=== PATIENT | male | born 1990 | race Caucasian/White ===

== ENCOUNTER 2016-09-15 22:00 | Emergency (ER) | payer SELFPAY ==
[2016-09-15 22:09] VITALS: BP 133/78; PULSE 82; RESP 18; TEMP 97.2
[2016-09-15] MEDS ORDERED: PROPARACAINE 0.5% OPHTH DROPS 15 ML BTL RIGHT EYE STA (22:13)
[2016-09-15] MEDS ORDERED: TOBRAMYCIN 0.3% OPHTH DROPS 5 ML BTL LEFT EYE STA (22:29)
[2016-09-15] MEDS ORDERED: methylPREDNISolone SOD SUCCI 125 MG/2 ML VIAL IM ONE (22:30)
--- NOTE | 2016-09-15 22:39 | ED ---
Allergic Reaction HPI - General Chief complaint: Allergic Reaction Stated complaint: eye swollen, SOB Time Seen by Provider: 09/15/16 22:12 Source: patient, RN notes reviewed Mode of arrival: ambulatory Limitations: no limitations - History of Present Illness Initial Comments: Patient is a 26 year old male with 1 day of swollen left eye. Patient reports he noticed it to swell earlier today, but took a nap and woke up with his entire eye swollen nearly shut. Patient states that he has also noticed a rash on his hands, neck, and chest earlier today. Patient reports it is pruritic and spreading, he states he has blisters on his fingers. Patient states that he has had no new medication. Patient reports to being outside cleaning brush and [place] 2 days ago. He reports he could have had contact with poison oak or evelin. Patient denies any tongue swelling, states mildly short of breath. Denies abdominal pain, chest pain, nausea, vomiting, fever, chills. - Related Data Home Medications Medication Instructions Recorded Confirmed Ibuprofen [Advil] 200 mg PO Q6HR PRN 12/31/15 12/31/15 Multivitamin [Men's Multi-Vitamin] 1 tab PO DAILY 12/31/15 12/31/15 Previous Rx's Medication Instructions Recorded traMADol HCL [Ultram] 100 mg PO Q4HR PRN #20 tab 12/31/15 predniSONE 10 mg PO DIRECTED #43 tab 09/15/16 Allergies Allergy/AdvReac Type Severity Reaction Status Date / Time No Known Allergies Allergy Verified 09/15/16 22:09 Review of Systems ROS Statement: Those systems with pertinent positive or pertinent negative responses have been documented in the HPI. ROS Other: All systems not noted in ROS Statement are negative. Past Medical History Past Medical History: No Reported History History of Any Multi-Drug Resistant Organisms: None Reported Additional Past Surgical History / Comment(s): lymph node removed from behind left ear Past Anesthesia/Blood Transfusion Reactions: No Reported Reaction Past Psychological History: No Psychological Hx Reported Additional Psychological History / Comment(s): Pt resides with his fiancee and 4 yr old son. He is an control electrician. He is independent. Smoking Status: Never smoker Past Alcohol Use History: None Reported Additional Past Alcohol Use History / Comment(s): Pt states he smokes about 1 pack of cigarettes a month. He does not smoke daily. He drinks less than 14 drinks per week. Past Drug Use History: Marijuana Additional Drug Use History / Comment(s): Pt states he occasionally smokes marijuana but not on a regular basis. - Past Family History Father Family Medical History: Diabetes Mellitus Additional Family Medical History / Comment(s): Father recently had a cholecystectomy. Mother Family Medical History: No Reported History Additional Family Medical History / Comment(s): Mother is healthy. General Exam - General Exam Comments Initial Comments: Pleasant 26 year old male no distress. Limitations: no limitations General appearance: alert, in no apparent distress Head exam: Present: atraumatic, normocephalic, normal inspection Eye exam: Present: PERRL, EOMI. Absent: normal appearance (significantly swollen left periorbital region. No evdence of crusting, drainage from the eye. Few blister like lesions over left eyebrow and upper eyelid. ), scleral icterus , conjunctival injection, periorbital swelling ENT exam: Present: normal exam, mucous membranes moist, other (scattered erythematous .2cm bister over neck and side of face. ) Neck exam: Present: normal inspection. Absent: tenderness, meningismus, lymphadenopathy Respiratory exam: Present: normal lung sounds bilaterally. Absent: respiratory distress, wheezes, rales, rhonchi, stridor Cardiovascular Exam: Present: regular rate, normal rhythm, normal heart sounds. Absent: systolic murmur, diastolic murmur, rubs, gallop, clicks GI/Abdominal exam: Present: soft, normal bowel sounds. Absent: distended, tenderness, guarding, rebound, rigid Extremities exam: Present: normal inspection, full ROM, normal capillary refill , other (linear blisters over fingers into wrist. ). Absent: tenderness, pedal edema, joint swelling, calf tenderness Back exam: Present: normal inspection Neurological exam: Present: alert, oriented X3, CN II-XII intact Psychiatric exam: Present: normal affect, normal mood Skin exam: Present: warm, dry, intact, normal color, rash (evidence of blistering erythematous lesions on hands, trunk, neck and back. Rash cosistent with contact dermatitis from poison oak or evelin. ) Course Vital Signs 09/15/16 22:06 Temperature 97.2 F L Pulse Rate 82 Respiratory 18 Rate Blood Pressure 133/78 O2 Sat by Pulse 100 Oximetry Medical Decision Making - Medical Decision Making Patient is a 26 year old male with 1 day of swollen left eye. Patient reports he noticed it to swell earlier today, but took a nap and woke up with his entire eye swollen nearly shut. Patient states that he has also noticed a rash on his hands, neck, and chest earlier today. Patient reports it is pruritic and spreading, he states he has blisters on his fingers. Patient states that he has had no new medication. Patient reports to being outside cleaning brush and [place] 2 days ago. Patient rash is consistent with posion oak, and evidence of lesions over upper left eyelids causing the swelling. Patient visual accuity normal, no evidence of respiratory distress or wheezing. No swelling of tongue. Patient given IM solumedrol and advised to continue dosing benadryl every 6 hours, and finishing steroid prescription for 2 weeks. Patient given tobramycin eye drops for left eye to ensure no infections occur and keep eye moistened. Patient case reviewed with Dr. Huitron, and Dr. Huitron examined the patient. Recommended applying OTC caladryl for drying out the lesions and helping with pain. Return parameters discussed. Disposition Clinical Impression: Contact dermatitis due to poison oak, Eye swollen, left Disposition: HOME SELF-CARE Condition: Good Instructions: Contact Dermatitis (ED), Poison Evelin (ED) Additional Instructions: Patient advised to complete steroid taper for the next 2 weeks. Apply the antibiotic eyedrop every 4-6 hours for the next few days until eye swelling diminishes. Apply Caladryl lotion over the areas that are open. Avoid scratching and spreading the oils. Apply cold compresses and ice over the eye. Return to the emergency department if any alarming signs or symptoms occur. Prescriptions: predniSONE 10 mg PO DIRECTED #43 tab Referrals: Jacobo Workman MD [STAFF PHYSICIAN] - 1-2 days Time of Disposition: 22:39
== END 2016-09-15 22:51 | disposition home or self-care (01) ==
LOC: EC 22:00
DX: L25.5 Unspecified contact dermatitis due to plants, except food (principal); H57.8 Other specified disorders of eye and adnexa; F17.210 Nicotine dependence, cigarettes, uncomplicated; Z79.899 Other long term (current) drug therapy
CPT/HCPCS: 99283; 96372; J2930

== ENCOUNTER 2017-01-26 10:12 | Emergency (ER) | payer OTHER ==
[2017-01-26] MEDS ORDERED: SODIUM CHLORIDE 0.9% 1,000 ML IV STA ×2 (10:55)
[2017-01-26 11:28] LABS: Appearance,Urine Clear (Clear); Bilirubin,Urine Negative (Negative); Glucose,Urine (UA) Negative (Negative); Ketones,Urine Negative (Negative); Leukocyte Esterase,Urine Negative (Negative); Mucus,Urine Few /hpf; Nitrite,Urine Negative (Negative); Particle Count 3516; Protein,Urine 1+ (Negative); Specific Gravity,Urine 1.025 (1.001-1.035); UA Billing (MACRO vs. MICRO) MICRO; Urobilinogen,Urine <2.0 mg/dL (<2.0); WBC,Urine 4 /hpf (0-5)
--- NOTE | 2017-01-26 11:30 | XR ---
EXAMINATION TYPE: XR KUB DATE OF EXAM: 01/26/2017 CLINICAL DATA: 26-year-old male with abdominal pain, [facility] COMPARISON: 12/31/2015 FINDINGS: Lung bases are clear. No evidence for free intraperitoneal air. No dilated small bowel or air-fluid levels. Scattered air and stool seen throughout the colon extendi ng distally into the rectum. No significant stool burden. No suspicious calcifications identified. IMPRESSION: No evidence of bowel obstruction or free intraperitoneal air.
[2017-01-26 11:34] LABS: Add Differential Manual Differential
[2017-01-26 11:37] LABS: ALT 51 U/L (21-72); AST 34 U/L (17-59); Alkaline Phosphatase 108 U/L (38-126); Amylase <30 U/L (30-110); Anion Gap 11 mmol/L; Blood Urea Nitrogen 15 mg/dL (9-20); Calcium 9.1 mg/dL (8.4-10.2); Carbon Dioxide 30 mmol/L (22-30); Chloride 101 mmol/L (98-107); Glucose 92 mg/dL (74-99); Non-African American GFR(MDRD) >60 (>60 ml/min/1.73 sqM); Potassium 3.7 mmol/L (3.5-5.1); Sodium 142 mmol/L (137-145); Total Bilirubin 0.5 mg/dL (0.2-1.3); Total Protein 6.8 g/dL (6.3-8.2)
[2017-01-26 11:47] LABS: Manual Review Performed; Nucleated Red Blood Cells 0 /100 WBC (0-0); RBC Morphology Normal; Total Cells Counted 100
[2017-01-26 11:51] LABS: Aty Lym Flag Slight; Basophils % (A) 1 %; CHCM 34.8; Eosinophils # (A) 0.2 k/uL (0-0.7); Eosinophils % (A) 4 %; HCT 39.1 % (39.0-53.0); HDW 2.93; HGB 13.7 gm/dL (13.0-17.5); Luc # (Auto) 0.24; Luc % (Auto) 5; Lymphocytes % (A) 21 %; MCH 29.3 pg (25.0-35.0); MCHC 35.1 g/dL (31.0-37.0); MCV 83.6 fL (80.0-100.0); Mean Platelet Volume 7.7; Monocytes # (A) 0.4 k/uL (0-1.0); Monocytes % (A) 8 %; Neutrophils # (A) 2.8 k/uL (1.3-7.7); Neutrophils % (A) 62 %; RBC 4.68 m/uL (4.30-5.90); RDW 12.9 % (11.5-15.5); WBC 4.6 k/uL (3.8-10.6); WBC (Perox) 4.54
--- NOTE | 2017-01-26 12:10 | ED ---
General Adult HPI - General Chief complaint: Abdominal Pain Stated complaint: body aches/sob Time Seen by Provider: 01/26/17 10:48 Source: patient, RN notes reviewed Mode of arrival: ambulatory Limitations: no limitations - History of Present Illness Initial comments: Patient 26-year-old male who presents emergency room today with a chief complaint of increased body aches over the last 2-3 days. He does admit to a sore throat. Patient does admit that he's felt nauseated at times. Does admit that he's been experiencing some left upper quadrant pain. Patient denies any other complaints or associated symptoms. Patient denies any shortness of breath , chest pain, back pain, vomiting, numbness or tingling, dysuria or hematuria, constipation or diarrhea, headaches or visual changes, or any other complaints. - Related Data Home Medications Medication Instructions Recorded Confirmed Acetaminophen Tab [Tylenol Tab] 500 mg PO Q6HR PRN 01/26/17 01/26/17 Ibuprofen [Motrin] 200 mg PO Q6HR PRN 01/26/17 01/26/17 Allergies Allergy/AdvReac Type Severity Reaction Status Date / Time No Known Allergies Allergy Verified 01/26/17 10:42 Review of Systems ROS Statement: Those systems with pertinent positive or pertinent negative responses have been documented in the HPI. ROS Other: All systems not noted in ROS Statement are negative. Past Medical History Past Medical History: No Reported History History of Any Multi-Drug Resistant Organisms: None Reported Additional Past Surgical History / Comment(s): lymph node removed from behind left ear Past Anesthesia/Blood Transfusion Reactions: No Reported Reaction Past Psychological History: No Psychological Hx Reported Smoking Status: Never smoker Past Alcohol Use History: None Reported Past Drug Use History: Marijuana - Past Family History Father Family Medical History: Diabetes Mellitus Additional Family Medical History / Comment(s): Father recently had a cholecystectomy. Mother Family Medical History: No Reported History Additional Family Medical History / Comment(s): Mother is healthy. General Exam - General Exam Comments Initial Comments: General: The patient is awake and alert, in no distress, and does not appear acutely ill. Eye: Pupils are equal, round and reactive to light, extra-ocular movements are intact. No nystagmus. There is normal conjunctiva bilaterally. No signs of icterus. Ears, nose, mouth and throat: There are moist mucous membranes and no oral lesions. Neck: The neck is supple, there is no tenderness or JVD. Cardiovascular: There is a regular rate and rhythm. No murmur, rub or gallop is appreciated. Respiratory: Lungs are clear to auscultation, respirations are non-labored, breath sounds are equal. No wheezes, stridor, rales, or rhonchi. Gastrointestinal: Soft, non-distended, non-tender abdomen without masses or organomegaly noted. There is no rebound or guarding present. No CVA tenderness. Bowel sounds are unremarkable. Musculoskeletal: Normal ROM, no tenderness. Strength 5/5. Sensation intact. Pulses equal bilaterally 2+. Neurological: A&O x 3. CN II-XII intact, There are no obvious motor or sensory deficits. Coordination appears grossly intact. Speech is normal. Skin: Skin is warm and dry and no rashes or lesions are noted. Psychiatric: Cooperative, appropriate mood & affect, normal judgment. Limitations: no limitations Course Vital Signs 01/26/17 10:28 Temperature 98.2 F Pulse Rate 86 Respiratory 17 Rate Blood Pressure 114/71 O2 Sat by Pulse 100 Oximetry Medical Decision Making - Medical Decision Making Patient reexamined at this time shows no signs of distress resting comfortably. Patient labs been reviewed. Negative strep test. Negative heterophile. Remaining labs unremarkable. Patient will be discharged home advised most a viral illness. Advised return to emergency symptoms increase or worsen. - Lab Data Result diagrams: 01/26/17 11:05 01/26/17 11:05 Lab Results 01/26/17 01/26/17 01/26/17 Range/Units 11:05 11:05 11:05 WBC 4.6 (3.8-10.6) k/uL RBC 4.68 (4.30-5.90) m/uL Hgb 13.7 (13.0-17.5) gm/dL Hct 39.1 (39.0-53.0) % MCV 83.6 (80.0-100.0) fL MCH 29.3 (25.0-35.0) pg MCHC 35.1 (31.0-37.0) g/dL RDW 12.9 (11.5-15.5) % Plt Count 195 (150-450) k/uL Neutrophils % 62 % Neutrophils % (Manual) 64 % Band Neutrophils % 3.0 % Lymphocytes % 21 % Lymphocytes % (Manual) 18 % Monocytes % 8 % Monocytes % (Manual) 15 % Eosinophils % 4 % Basophils % 1 % Neutrophils # 2.8 (1.3-7.7) k/uL Neutrophils # (Manual) 3.08 (1.3-7.7) k/uL Lymphocytes # 1.0 (1.0-4.8) k/uL Lymphocytes # (Manual) 0.83 L (1.0-4.8) k/uL Monocytes # 0.4 (0-1.0) k/uL Monocytes # (Manual) 0.69 (0-1.0) k/uL Eosinophils # 0.2 (0-0.7) k/uL Basophils # 0.0 (0-0.2) k/uL Nucleated RBCs 0 (0-0) /100 WBC Manual Slide Review Performed RBC Morphology Normal Sodium 142 (137-145) mmol/L Potassium 3.7 (3.5-5.1) mmol/L Chloride 101 (98-107) mmol/L Carbon Dioxide 30 (22-30) mmol/L Anion Gap 11 mmol/L BUN 15 (9-20) mg/dL Creatinine 0.78 (0.66-1.25) mg/dL Est GFR (MDRD) Af Amer >60 (>60 ml/min/1.73 sqM) Est GFR (MDRD) Non-Af >60 (>60 ml/min/1.73 sqM) Glucose 92 (74-99) mg/dL Calcium 9.1 (8.4-10.2) mg/dL Total Bilirubin 0.5 (0.2-1.3) mg/dL AST 34 (17-59) U/L ALT 51 (21-72) U/L Alkaline Phosphatase 108 (38-126) U/L Total Protein 6.8 (6.3-8.2) g/dL Albumin 4.2 (3.5-5.0) g/dL Amylase <30 L (30-110) U/L Lipase 33 (23-300) U/L Urine Color Urine Appearance (Clear) Urine pH (5.0-8.0) Ur Specific Webster (1.001-1.035) Urine Protein (Negative) Urine Glucose (UA) (Negative) Urine Ketones (Negative) Urine Blood (Negative) Urine Nitrite (Negative) Urine Bilirubin (Negative) Urine Urobilinogen (<2.0) mg/dL Ur Leukocyte Esterase (Negative) Urine WBC (0-5) /hpf Urine Mucus (None) /hpf Heterophile Antibody Negative (Negative) Group A Strep Rapid (Negative) 01/26/17 01/26/17 Range/Units 11:05 11:05 WBC (3.8-10.6) k/uL RBC (4.30-5.90) m/uL Hgb (13.0-17.5) gm/dL Hct (39.0-53.0) % MCV (80.0-100.0) fL MCH (25.0-35.0) pg MCHC (31.0-37.0) g/dL RDW (11.5-15.5) % Plt Count (150-450) k/uL Neutrophils % % Neutrophils % (Manual) % Band Neutrophils % % Lymphocytes % % Lymphocytes % (Manual) % Monocytes % % Monocytes % (Manual) % Eosinophils % % Basophils % % Neutrophils # (1.3-7.7) k/uL Neutrophils # (Manual) (1.3-7.7) k/uL Lymphocytes # (1.0-4.8) k/uL Lymphocytes # (Manual) (1.0-4.8) k/uL Monocytes # (0-1.0) k/uL Monocytes # (Manual) (0-1.0) k/uL Eosinophils # (0-0.7) k/uL Basophils # (0-0.2) k/uL Nucleated RBCs (0-0) /100 WBC Manual Slide Review RBC Morphology Sodium (137-145) mmol/L Potassium (3.5-5.1) mmol/L Chloride (98-107) mmol/L Carbon Dioxide (22-30) mmol/L Anion Gap mmol/L BUN (9-20) mg/dL Creatinine (0.66-1.25) mg/dL Est GFR (MDRD) Af Amer (>60 ml/min/1.73 sqM) Est GFR (MDRD) Non-Af (>60 ml/min/1.73 sqM) Glucose (74-99) mg/dL Calcium (8.4-10.2) mg/dL Total Bilirubin (0.2-1.3) mg/dL AST (17-59) U/L ALT (21-72) U/L Alkaline Phosphatase (38-126) U/L Total Protein (6.3-8.2) g/dL Albumin (3.5-5.0) g/dL Amylase (30-110) U/L Lipase (23-300) U/L Urine Color Yellow Urine Appearance Clear (Clear) Urine pH 6.0 (5.0-8.0) Ur Specific Webster 1.025 (1.001-1.035) Urine Protein 1+ H (Negative) Urine Glucose (UA) Negative (Negative) Urine Ketones Negative (Negative) Urine Blood Negative (Negative) Urine Nitrite Negative (Negative) Urine Bilirubin Negative (Negative) Urine Urobilinogen <2.0 (<2.0) mg/dL Ur Leukocyte Esterase Negative (Negative) Urine WBC 4 (0-5) /hpf Urine Mucus Few H (None) /hpf Heterophile Antibody (Negative) Group A Strep Rapid Negative (Negative) Disposition Clinical Impression: Acute pharyngitis Disposition: HOME SELF-CARE Condition: Good Instructions: Pharyngitis (ED) Additional Instructions: Please use medication as discussed. Please follow-up with family doctor in the next 2 days of symptoms have not improved. Please return to emergency room if the symptoms increase or worsen or for any other concerns. Referrals: None,Stated [Primary Care Provider] - 1-2 days Michelle Robin MD [REFERRING] - 1-2 days Time of Disposition: 12:41
[2017-01-26 13:11] VITALS: BP 98/55; PULSE 85; RESP 18; TEMP 98.3
== END 2017-01-26 13:12 | disposition home or self-care (01) ==
LOC: EC 10:12
DX: J02.9 Acute pharyngitis, unspecified (principal); R10.12 Left upper quadrant pain
CPT/HCPCS: 36415; 74000; 80053; 81001; 82150; 83690; 85025; 86308; 87081; 87430; 96360; 96361; 99284

== ENCOUNTER 2017-05-11 17:47 | Emergency (ER) | payer OTHER ==
[2017-05-11 18:06] VITALS: RESP 18
--- NOTE | 2017-05-11 18:51 | ED ---
Wound/Laceration HPI - General Chief Complaint: Wound/Laceration Stated Complaint: left hand laceration Time Seen by Provider: 05/11/17 18:41 Source: patient, RN notes reviewed, old records reviewed Mode of arrival: ambulatory Limitations: no limitations - History of Present Illness Initial Comments: This is a 26-year-old male presents emergency Department chief complaint of left hand laceration. Patient reports that he was working on his barn applying lites of the rafters, he slipped, and cut his hand on the metal edge. He is concerned there may be pieces of metal in his hand. He states that he has full range of motion of the hand. His tetanus is up-to-date. Denies any other injuries associated with this laceration.Patient denies any recent fever, chills , shortness of breath, chest pain, back pain, abdominal pain, nausea vomiting, numbness or tingling, dysuria or hematuria, constipation or diarrhea, headaches or visual changes, or any other current symptoms - Related Data Home Medications Medication Instructions Recorded Confirmed Acetaminophen Tab [Tylenol Tab] 500 mg PO Q6HR PRN 01/26/17 01/26/17 Ibuprofen [Motrin] 200 mg PO Q6HR PRN 01/26/17 01/26/17 Allergies Allergy/AdvReac Type Severity Reaction Status Date / Time No Known Allergies Allergy Verified 05/11/17 18:03 Review of Systems ROS Statement: Those systems with pertinent positive or pertinent negative responses have been documented in the HPI. ROS Other: All systems not noted in ROS Statement are negative. Past Medical History Past Medical History: No Reported History History of Any Multi-Drug Resistant Organisms: None Reported Additional Past Surgical History / Comment(s): lymph node removed from behind left ear Past Anesthesia/Blood Transfusion Reactions: No Reported Reaction Past Psychological History: No Psychological Hx Reported Smoking Status: Never smoker Past Alcohol Use History: None Reported Past Drug Use History: Marijuana - Past Family History Father Family Medical History: Diabetes Mellitus Additional Family Medical History / Comment(s): Father recently had a cholecystectomy. Mother Family Medical History: No Reported History Additional Family Medical History / Comment(s): Mother is healthy. General Exam - General Exam Comments Initial Comments: 26-year-old male. No acute distress. Limitations: no limitations General appearance: alert, in no apparent distress Head exam: Present: atraumatic, normocephalic, normal inspection Eye exam: Present: normal appearance, PERRL, EOMI. Absent: scleral icterus, conjunctival injection, periorbital swelling ENT exam: Present: normal exam, mucous membranes moist Neck exam: Present: normal inspection. Absent: tenderness, meningismus, lymphadenopathy Respiratory exam: Present: normal lung sounds bilaterally. Absent: respiratory distress, wheezes, rales, rhonchi, stridor Cardiovascular Exam: Present: regular rate, normal rhythm, normal heart sounds. Absent: systolic murmur, diastolic murmur, rubs, gallop, clicks GI/Abdominal exam: Present: soft, normal bowel sounds. Absent: distended, tenderness, guarding, rebound, rigid Extremities exam: Present: normal inspection, full ROM, normal capillary refill. Absent: tenderness, pedal edema, joint swelling, calf tenderness Left Elbow exam: Present: normal inspection, full ROM Forearm Wrist exam: Present: normal inspection, full ROM Hand Wrist exam: Present: full ROM. Absent: normal inspection (2 cm laceration over the palmar aspect of the hand near fifth metacarpal joints. ) Back exam: Present: normal inspection Neurological exam: Present: alert, oriented X3, CN II-XII intact Psychiatric exam: Present: normal affect, normal mood Skin exam: Present: warm, dry, intact, normal color. Absent: rash Course Vital Signs 05/11/17 05/11/17 18:04 19:39 Temperature 97.3 F L 97.8 F Pulse Rate 88 74 Respiratory 18 18 Rate Blood Pressure 130/73 129/86 O2 Sat by Pulse 100 98 Oximetry Procedures - Laceration Laceration #1 Indication: laceration Site: hand (left hand, palmar aspect near 5th metacarpal) Size (cm): 2 Description: linear Depth: simple, single layer Anesthetic Used: lidocaine 1% Anesthesia Technique: local infiltration Amount (mls): 4 Pre-repair: wound explored, irrigated extensively Type of Sutures: nylon Size of Sutures: 5-0 Number of Sutures: 4 Technique: simple, interrupted Patient Tolerated Procedure: well, no complications Medical Decision Making - Medical Decision Making This is a 26-year-old male presents emergency Department chief complaint of left hand laceration. Patient reports that he was working on his barn applying lites of the rafters, he slipped, and cut his hand on the metal edge. Patient tetanus is up to date. Patient laceratoin measures 2 cm and palmar aspect of left hand. Patient is right handed. Patient wound irrigated with saline and iodine. Patient hand Xray is negative, full range of motion noted, no paresthesias and is Neurovascularly intact. Patient wound was well approximated with 4 sutures and covered with bacitracin and gauze. Discussed monitoring for infection, discussed treatment plan, wound care, nad return parameters. Disposition Clinical Impression: Laceration of left hand Disposition: HOME SELF-CARE Condition: Good Instructions: Laceration (ED) Additional Instructions: Please return to the emergency room in 8-10 days to have sutures removed. Please leave wound covered for the first 24-48 hours and then leave open to air after that time. Please use clean soap and water to clean the suture area to prevent scabbing over the top of your sutures. Please watch for any signs of infection which may include but not limited to increased pain, swelling, redness , fever or chills. Please return to the emergency room if any signs of infection do occur. Please return to the emergency room for any other concerns or complications. Referrals: None,Stated [Primary Care Provider] - 1-2 days Time of Disposition: 19:26
--- NOTE | 2017-05-11 19:16 | XR ---
EXAMINATION TYPE: XR hand complete LT DATE OF EXAM: 05/11/2017 COMPARISON: NONE HISTORY: Pain TECHNIQUE: 3 views FINDINGS: Metacarpals are intact. I see no fracture nor dislocation. Joint spaces are normal. IMPRESSION: Negative left hand exam
[2017-05-11 19:41] VITALS: BP 129/86; PULSE 74; TEMP 97.8
== END 2017-05-11 19:41 | disposition home or self-care (01) ==
LOC: EC 17:47
DX: S61.412A Laceration without foreign body of left hand, initial encounter (principal); W45.8XXA Other foreign body or object entering through skin, initial encounter; Y93.89 Activity, other specified; Y92.71 Barn as the place of occurrence of the external cause
CPT/HCPCS: 12001; 99283

== ENCOUNTER 2018-06-17 19:32 | Emergency (ER) | payer OTHER ==
[2018-06-17 19:38] VITALS: RESP 16
[2018-06-17] MEDS ORDERED: KETOROLAC 30 MG/ML 1 ML VIAL IVP STA (19:42)
[2018-06-17] MEDS ORDERED: SODIUM CHLORIDE 0.9% 1,000 ML IV STA (19:42)
[2018-06-17] MEDS ORDERED: ONDANSETRON 4 MG/2 ML VIAL IVP STA (19:42)
--- NOTE | 2018-06-17 19:46 | ED ---
Nausea/Vomiting/Diarrhea HPI - General Chief complaint: Nausea/Vomiting/Diarrhea Stated complaint: Abd Pain Time Seen by Provider: 06/17/18 19:43 Source: patient, EMS, RN notes reviewed Mode of arrival: ambulatory Limitations: no limitations - History of Present Illness Initial comments: 27-year-old male presents emergency Department chief complaint of sudden onset of left-sided abdominal, flank pain. Patient states that he is planning monopoly when this pain started. He does admit to a few episodes of vomiting and still feels nauseated. Patient states pain is not worse with movement. He states he's had normal bowel movements no diarrhea no constipation. He's has a benign past medical history with no prior abdominal. Patient reports no fever no chills no chest pain or shortness breath - Related Data Home Medications Medication Instructions Recorded Confirmed Ibuprofen [Motrin] 200 mg PO Q6HR PRN 01/26/17 06/17/18 Acetaminophen [Tylenol] 650 mg PO Q6H PRN 06/17/18 06/17/18 Previous Rx's Medication Instructions Recorded Ibuprofen [Motrin] 600 mg PO Q8HR PRN #30 tab 06/17/18 Ondansetron Odt [Zofran Odt] 4 mg PO Q8HR PRN #10 tab 06/17/18 Allergies Allergy/AdvReac Type Severity Reaction Status Date / Time No Known Allergies Allergy Verified 06/17/18 19:40 Review of Systems ROS Statement: Those systems with pertinent positive or pertinent negative responses have been documented in the HPI. ROS Other: All systems not noted in ROS Statement are negative. Past Medical History Past Medical History: No Reported History History of Any Multi-Drug Resistant Organisms: None Reported Additional Past Surgical History / Comment(s): lymph node removed from behind left ear Past Anesthesia/Blood Transfusion Reactions: No Reported Reaction Past Psychological History: No Psychological Hx Reported Smoking Status: Never smoker Past Alcohol Use History: None Reported Past Drug Use History: Marijuana - Past Family History Father Family Medical History: Diabetes Mellitus Additional Family Medical History / Comment(s): Father recently had a cholecystectomy. Mother Family Medical History: No Reported History Additional Family Medical History / Comment(s): Mother is healthy. General Exam General appearance: alert, in no apparent distress Head exam: Present: atraumatic, normocephalic, normal inspection Neck exam: Present: normal inspection. Absent: tenderness, meningismus, lymphadenopathy Respiratory exam: Present: normal lung sounds bilaterally. Absent: respiratory distress, wheezes, rales, rhonchi, stridor Cardiovascular Exam: Present: regular rate, normal rhythm, normal heart sounds. Absent: systolic murmur, diastolic murmur, rubs, gallop, clicks GI/Abdominal exam: Present: soft, tenderness (Mild left-sided), normal bowel sounds. Absent: distended, guarding, rebound, rigid Back exam: Present: CVA tenderness (L). Absent: CVA tenderness (R) Skin exam: Present: warm, dry, intact, normal color. Absent: rash Course Vital Signs 06/17/18 06/17/18 19:34 20:04 Temperature 97.4 F L Pulse Rate 89 Respiratory 16 Rate Blood Pressure 139/93 O2 Sat by Pulse 98 Oximetry Medical Decision Making - Medical Decision Making 27-year-old male presented for nausea vomiting and left flank pain. CT, lab work obtained no acute abnormality. There is no evidence of kidney stone this time though symptoms seem to be consistent with stone. Patient felt improved after Toradol and Zofran. Patient be discharged at this time return parameters discussed. - Lab Data Result diagrams: 06/17/18 19:44 06/17/18 19:44 Lab Results 06/17/18 06/17/18 06/17/18 Range/Units 19:44 19:44 20:00 WBC 6.1 (3.8-10.6) k/uL RBC 4.95 (4.30-5.90) m/uL Hgb 14.1 (13.0-17.5) gm/dL Hct 41.9 (39.0-53.0) % MCV 84.6 (80.0-100.0) fL MCH 28.4 (25.0-35.0) pg MCHC 33.6 (31.0-37.0) g/dL RDW 13.3 (11.5-15.5) % Plt Count 226 (150-450) k/uL Neutrophils % 59 % Lymphocytes % 29 % Monocytes % 6 % Eosinophils % 4 % Basophils % 0 % Neutrophils # 3.6 (1.3-7.7) k/uL Lymphocytes # 1.8 (1.0-4.8) k/uL Monocytes # 0.3 (0-1.0) k/uL Eosinophils # 0.3 (0-0.7) k/uL Basophils # 0.0 (0-0.2) k/uL Sodium 142 (137-145) mmol/L Potassium 4.0 (3.5-5.1) mmol/L Chloride 102 (98-107) mmol/L Carbon Dioxide 29 (22-30) mmol/L Anion Gap 11 mmol/L BUN 18 (9-20) mg/dL Creatinine 0.81 (0.66-1.25) mg/dL Est GFR (CKD-EPI)AfAm >90 (>60 ml/min/1.73 sqM) Est GFR (CKD-EPI)NonAf >90 (>60 ml/min/1.73 sqM) Glucose 91 (74-99) mg/dL Calcium 10.0 (8.4-10.2) mg/dL Total Bilirubin 0.5 (0.2-1.3) mg/dL AST 53 (17-59) U/L ALT 98 H (21-72) U/L Alkaline Phosphatase 110 (38-126) U/L Total Protein 7.9 (6.3-8.2) g/dL Albumin 5.0 (3.5-5.0) g/dL Amylase 48 (30-110) U/L Lipase 62 (23-300) U/L Urine Color Yellow Urine Appearance Cloudy (Clear) Urine pH 7.0 (5.0-8.0) Ur Specific Baring 1.016 (1.001-1.035) Urine Protein Trace H (Negative) Urine Glucose (UA) Negative (Negative) Urine Ketones Negative (Negative) Urine Blood Negative (Negative) Urine Nitrite Negative (Negative) Urine Bilirubin Negative (Negative) Urine Urobilinogen <2.0 (<2.0) mg/dL Ur Leukocyte Esterase Negative (Negative) Urine WBC <1 (0-5) /hpf Amorphous Sediment Moderate H (None) /hpf Urine Mucus Rare H (None) /hpf Disposition Clinical Impression: Abdominal pain Disposition: HOME SELF-CARE Condition: Stable Instructions: Abdominal Pain (ED) Additional Instructions: Please return to the Emergency Department if symptoms worsen or any other concerns. Prescriptions: Ibuprofen [Motrin] 600 mg PO Q8HR PRN #30 tab PRN Reason: Pain Ondansetron Odt [Zofran Odt] 4 mg PO Q8HR PRN #10 tab PRN Reason: Nausea Is patient prescribed a controlled substance at d/c from ED?: No Referrals: None,Stated [Primary Care Provider] - 1-2 days Time of Disposition: 21:01
[2018-06-17 20:04] VITALS: TEMP 97.4
[2018-06-17 20:10] LABS: Basophils % (A) 0 %; Eosinophils # (A) 0.3 k/uL (0-0.7); Eosinophils % (A) 4 %; HCT 41.9 % (39.0-53.0); HGB 14.1 gm/dL (13.0-17.5); Lymphocytes # (A) 1.8 k/uL (1.0-4.8); Lymphocytes % (A) 29 %; MCH 28.4 pg (25.0-35.0); MCHC 33.6 g/dL (31.0-37.0); MCV 84.6 fL (80.0-100.0); Mean Platelet Volume 7.4; Monocytes # (A) 0.3 k/uL (0-1.0); Monocytes % (A) 6 %; Neutrophils # (A) 3.6 k/uL (1.3-7.7); Neutrophils % (A) 59 %; Platelet Count 226 k/uL (150-450); RBC 4.95 m/uL (4.30-5.90); RDW 13.3 % (11.5-15.5); WBC 6.1 k/uL (3.8-10.6)
[2018-06-17 20:16] LABS: ALT 98 U/L (21-72); AST 53 U/L (17-59); Alkaline Phosphatase 110 U/L (38-126); Amylase 48 U/L (30-110); Anion Gap 11 mmol/L; Blood Urea Nitrogen 18 mg/dL (9-20); Carbon Dioxide 29 mmol/L (22-30); Chloride 102 mmol/L (98-107); Glucose 91 mg/dL (74-99); Lipase 62 U/L (23-300); Sodium 142 mmol/L (137-145); Total Bilirubin 0.5 mg/dL (0.2-1.3); Total Protein 7.9 g/dL (6.3-8.2)
[2018-06-17 20:24] LABS: Amorphous Sediment,Urine Moderate /hpf; Appearance,Urine Cloudy (Clear); Bilirubin,Urine Negative (Negative); Blood,Urine Negative (Negative); Color,Urine Yellow; Glucose,Urine (UA) Negative (Negative); Ketones,Urine Negative (Negative); Leukocyte Esterase,Urine Negative (Negative); Mucus,Urine Rare /hpf; Nitrite,Urine Negative (Negative); Protein,Urine Trace (Negative); Specific Gravity,Urine 1.016 (1.001-1.035); Urobilinogen,Urine <2.0 mg/dL (<2.0); WBC,Urine <1 /hpf (0-5)
--- NOTE | 2018-06-17 20:58 | CT ---
EXAMINATION TYPE: CT abdomen pelvis wo con DATE OF EXAM: 06/17/2018 COMPARISON: 05/03/2012 HISTORY: Left side abdominal pain. CT DLP: 526.7 mGycm Automated exposure control for dose reduction was used. TECHNIQUE: Helical acquisition of images was performed from the lung bases through the pelvis. FINDINGS: Lung bases are clear. There is no pleural effusion. Heart size is normal. Liver spleen pancreas gallbladder appear normal. Bile ducts are not dilated. There is no adrenal mass . Kidneys have normal size and contour. There is no hydronephrosis. Ureters are not dilated. There is no retroperitoneal adenopathy. Bladder distends smoothly. There is no inguinal hernia. There is no free fluid in the pelvis. There i s no sign of mesenteric edema or adenopathy. There is no evidence of free air. I see no intestinal wa ll thickening. Appendix appears normal. The bony structures appear intact. IMPRESSION: NEGATIVE CT SCAN ABDOMEN AND PELVIS. NO RENAL STONE OR OBSTRUCTION. NORMAL APPENDIX. NO ADVERSE THACKER E COMPARED TO OLD EXAM.
[2018-06-17 21:07] VITALS: BP 123/82; PULSE 92
== END 2018-06-17 21:06 | disposition home or self-care (01) ==
LOC: EC 19:32
DX: R10.9 Unspecified abdominal pain (principal); R11.2 Nausea with vomiting, unspecified; Z83.79 Family history of other diseases of the digestive system
CPT/HCPCS: 99285; 96374; 96375; 96361; 36415; 80053; 82150; 83690; 85025; 81001; 74176; J2405; J1885

== ENCOUNTER 2018-12-18 00:01 | Emergency (ER) | payer OTHER ==
[2018-12-18 00:10] VITALS: BP 128/81; PULSE 97; RESP 16; TEMP 99.1
[2018-12-18] MEDS ORDERED: methylPREDNISolone SOD SUCCI 125 MG/2 ML VIAL IM ONE (00:25)
--- NOTE | 2018-12-18 00:25 | ED ---
Skin/Abscess/FB HPI - General Chief complaint: Skin/Abscess/Foreign Body Stated complaint: poss poision evelin Source: patient Mode of arrival: ambulatory Limitations: no limitations - History of Present Illness Initial comments: Sincere is a previously healthy 28-year-old gentleman who presents the emergency department today for evaluation of dermatitis. Patient reports that he believes he's been in contact with poison evelin or poison oak. 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 Patient reports he noted a rash on his neck, right arm and bilateral legs Tuesday evening he reports is progressively worsened over the weekend. Patient reports he's encountered this every summer the past few s ummers in a row. Patient states that he usually has come the hospital and to steroids and he feels better. Patient denies any additional complaints he denies any fevers, chills, nausea or vomiting. He reports the rash is itchy but improves with only O baths and calamine lotion as well as cold packs which is what he started the past. - Related Data Home Medications Medication Instructions Recorded Confirmed Ibuprofen [Motrin] 200 mg PO Q6HR PRN 01/26/17 06/17/18 Acetaminophen [Tylenol] 650 mg PO Q6H PRN 06/17/18 06/17/18 Previous Rx's Medication Instructions Recorded Ondansetron Odt [Zofran Odt] 4 mg PO Q8HR PRN #10 tab 06/17/18 RX: Ibuprofen [Motrin] 600 mg PO Q8HR PRN #30 tab 06/17/18 RX: hydrOXYzine HCL [Atarax] 25 mg PO TID PRN #15 tab 12/18/18 RX: predniSONE [Deltasone] See Taper PO DAILY 5 Days #15 12/18/18 tablet Allergies Allergy/AdvReac Type Severity Reaction Status Date / Time No Known Allergies Allergy Verified 12/18/18 00:10 Review of Systems ROS Statement: Those systems with pertinent positive or pertinent negative responses have been documented in the HPI. ROS Other: All systems not noted in ROS Statement are negative. Past Medical History Past Medical History: No Reported History History of Any Multi-Drug Resistant Organisms: None Reported Additional Past Surgical History / Comment(s): lymph node removed from behind left ear Past Anesthesia/Blood Transfusion Reactions: No Reported Reaction Past Psychological History: No Psychological Hx Reported Smoking Status: Never smoker Past Alcohol Use History: None Reported Past Drug Use History: Marijuana - Past Family History Father Family Medical History: Diabetes Mellitus Additional Family Medical History / Comment(s): Father recently had a cholecystectomy. Mother Family Medical History: No Reported History Additional Family Medical History / Comment(s): Mother is healthy. General Exam - General Exam Comments Initial Comments: Physical Exam GENERAL: Patient is well-developed and well-nourished. Patient is nontoxic and well-hydrated and is in no distress. HENT: Normocephalic, Atraumatic. EYES: PERRL, EOMI PULMONARY: Unlabored respirations CARDIOVASCULAR: RRR ABDOMEN: Soft and nontender with normal bowel sounds. SKIN: Contact dermatitis on the right side of the neck, right upper extremity, bilateral lower extremities distal to the knee. Patient also does have some small patches below the left eyebrow likely due to touching his face after making contact with the plant No signs of secondary infection : Deferred NEUROLOGIC: Patient is alert and oriented x3. Moving all extremities spontaneously MUSCULOSKELETAL: Normal extremities with adequate strength and full range of motion. No lower extremity swelling or edema. No calf tenderness. PSYCHIATRIC: Normal psychiatric evaluation Limitations: no limitations Course Vital Signs 12/18/18 00:08 Temperature 99.1 F Pulse Rate 97 Respiratory 16 Rate Blood Pressure 128/81 O2 Sat by Pulse 99 Oximetry Medical Decision Making - Medical Decision Making The patient was seen and evaluated, history is obtained from the patient Patient with contact of multiple plants with a rash consistent with wrist dermatitis which patient has had in the past IM steroids will be given patient will be given a long taper of steroids and hydroxyzine for itching. Supportive care was discussed, patient is very familiar supportive care as he has had this rash multiple times the past. All questions pertaining care were answered return parameters were discussed patient was discharged home in stable condition. Disposition Clinical Impression: Rhus dermatitis Disposition: HOME SELF-CARE Condition: Stable Instructions (If sedation given, give patient instructions): Poison Evelin (ED), Cold Compress or Soak (ED) Prescriptions: RX: hydrOXYzine HCL [Atarax] 25 mg PO TID PRN #15 tab PRN Reason: Itching RX: predniSONE [Deltasone] See Taper PO DAILY 5 Days #15 tablet Is patient prescribed a controlled substance at d/c from ED?: No Referrals: Michelle Robin MD [Primary Care Provider] - 1-2 days
== END 2018-12-18 00:37 | disposition home or self-care (01) ==
LOC: EC 00:01
DX: L23.7 Allergic contact dermatitis due to plants, except food (principal)
CPT/HCPCS: 99283; 96372; J2930

== ENCOUNTER 2019-04-10 19:55 | Emergency (ER) | payer OTHER ==
--- NOTE | 2019-04-10 20:50 | ED ---
General Adult HPI - General Chief complaint: Extremity Injury, Lower Stated complaint: R Foot Injury Time Seen by Provider: 04/10/19 20:22 Source: patient Mode of arrival: ambulatory Limitations: no limitations - History of Present Illness Initial comments: Patient is a 28-year-old male presenting to the emergency department with a chief complaint of right foot pain. Patient reports he dropped a very heavy ceiling fan on his right foot about one hour prior to ED arrival. Patient reports the pain is about a 5 and exacerbated with any movement. Patient reports swelling but no ecchymosis or other skin discoloration in the region. Patient reports limited range of motion due to pain. Patient denies any numbness and tingling. Patient reports he took Tylenol prior to ED arrival. - Related Data Home Medications Medication Instructions Recorded Confirmed Acetaminophen [Tylenol] 325 mg PO Q6H PRN 06/17/18 04/10/19 Allergies Allergy/AdvReac Type Severity Reaction Status Date / Time No Known Allergies Allergy Verified 04/10/19 21:53 Review of Systems ROS Statement: Those systems with pertinent positive or pertinent negative responses have been documented in the HPI. ROS Other: All systems not noted in ROS Statement are negative. Past Medical History Past Medical History: No Reported History History of Any Multi-Drug Resistant Organisms: None Reported Additional Past Surgical History / Comment(s): lymph node removed from behind left ear, Past Anesthesia/Blood Transfusion Reactions: No Reported Reaction Past Psychological History: No Psychological Hx Reported Smoking Status: Never smoker Past Alcohol Use History: Occasional Past Drug Use History: Marijuana - Past Family History Father Family Medical History: Diabetes Mellitus Additional Family Medical History / Comment(s): Father recently had a cholecystectomy. Mother Family Medical History: No Reported History Additional Family Medical History / Comment(s): Mother is healthy. General Exam Limitations: no limitations General appearance: alert, in no apparent distress Head exam: Present: atraumatic, normocephalic, normal inspection Eye exam: Present: normal appearance Pupils: Present: normal accommodation ENT exam: Present: normal exam, mucous membranes moist, normal external ear exam Neck exam: Present: normal inspection, full ROM Respiratory exam: Present: normal lung sounds bilaterally Cardiovascular Exam: Present: regular rate, normal rhythm, normal heart sounds Extremities exam: Present: normal capillary refill. Absent: normal inspection (Swelling on the right foot with no signs of lacerations or abrasions. No ecchymosis or skin discoloration.), full ROM (Limited range of motion due to pain.), tenderness (Midfoot tenderness. Medial lateral malleoli tenderness.) Back exam: Present: normal inspection, full ROM Neurological exam: Present: alert, oriented X3 Psychiatric exam: Present: normal affect, normal mood Skin exam: Present: warm, intact, normal color Course Vital Signs 04/10/19 04/10/19 20:07 21:58 Temperature 98.3 F 98.5 F Pulse Rate 115 H 75 Respiratory 16 18 Rate Blood Pressure 144/70 127/74 O2 Sat by Pulse 98 99 Oximetry Procedures - Orthopedic Splinting/Casting Injury #1 Side: right Lower Extremity Injury Location: foot Lower Extremity Immobilizer: Agusto wrap Medical Decision Making - Medical Decision Making Patient is a 28-year-old male presenting to emergency Department with a chief complaint of right foot injury. Patient dropped a heavy object in the right foot and is now developed swelling but no skin discoloration. Patient is requesting only Tylenol for pain. X-rays negative for acute fracture or dislocations. Suspect the patient to suffered contusion to the right foot. Patient advised to alternate between Tylenol and ibuprofen for pain control. Patient advised to apply ice compresses to keep foot elevated. Patient advised to follow-up with orthopedics if symptoms not improved within a week. Strict return parameters were thoroughly discussed with patient was understanding and agreeable. Case discussed with physician. Disposition Clinical Impression: Contusion of foot, right Disposition: HOME SELF-CARE Condition: Stable Instructions (If sedation given, give patient instructions): Foot Contusion (ED) Additional Instructions: Please follow up with ophthalmology if symptoms not improved. Apply ice compresses and keep leg elevated. Alternate between Tylenol and ibuprofen for pain control. Please return to emergency department if symptoms worsen. Is patient prescribed a controlled substance at d/c from ED?: No Referrals: Michelle Robin MD [Primary Care Provider] - 1-2 days Josh Silva MD [STAFF PHYSICIAN] - 1-2 days Time of Disposition: 21:42
--- NOTE | 2019-04-10 21:33 | XR ---
PROCEDURE: XR ankle complete RT - 3V DATE AND TIME: 04/10/2019 8:37 PM CLINICAL INDICATION: PHH; pain after trauma TECHNIQUE: Department protocol COMPARISON: None FINDINGS: There is no fracture or malalignment. The soft tissues are unremarkable. IMPRESSION: NO ACUTE PROCESS.
--- NOTE | 2019-04-10 21:34 | XR ---
PROCEDURE: XR foot complete RT - 3V DATE AND TIME: 04/10/2019 8:37 PM CLINICAL INDICATION: PHH; trauma TECHNIQUE: Department protocol COMPARISON: 05/03/2012 FINDINGS: There is no fracture or malalignment. The soft tissues are unremarkable. IMPRESSION: NO ACUTE PROCESS.
[2019-04-10 22:00] VITALS: BP 127/74; PULSE 75; RESP 18; TEMP 98.5
== END 2019-04-10 22:00 | disposition home or self-care (01) ==
LOC: EC 19:55
DX: S90.31XA Contusion of right foot, initial encounter (principal); W20.8XXA Other cause of strike by thrown, projected or falling object, initial encounter
CPT/HCPCS: 99283

== ENCOUNTER 2019-08-06 08:34 | Emergency (ER) | payer OTHER ==
[2019-08-06 08:43] VITALS: TEMP 98
[2019-08-06] MEDS ORDERED: ONDANSETRON 4 MG/2 ML VIAL IVP STA (09:02)
[2019-08-06] MEDS ORDERED: SODIUM CHLORIDE 0.9% 1,000 ML IV ONE (09:02)
--- NOTE | 2019-08-06 09:10 | ED ---
General Adult HPI - General Chief complaint: Upper Respiratory Infection Stated complaint: fever, vomiting, body aches Time Seen by Provider: 08/06/19 08:40 Source: patient, RN notes reviewed, old records reviewed Mode of arrival: ambulatory Limitations: no limitations - History of Present Illness Initial comments: This is a 29-year-old male who presents to the emergency department complaining of generalized body aches since Tuesday. Patient states that 103 fever at that time. Patient states he also has had a cough but no sputum production. Patient denies any difficulty breathing or chest pain. Patient states he has had nausea vomiting and diarrhea as well. Patient states he took cold medicine prior to arrival and it has Tylenol and that this white doesn't think he has a fever currently. Patient denies any recent injury or fall. - Related Data Home Medications Medication Instructions Recorded Confirmed Acetaminophen [Tylenol] 325 mg PO Q6H PRN 06/17/18 04/10/19 Previous Rx's Medication Instructions Recorded Oseltamivir [Tamiflu] 75 mg PO Q12HR #10 cap 08/06/19 Allergies Allergy/AdvReac Type Severity Reaction Status Date / Time No Known Allergies Allergy Verified 08/06/19 08:39 Review of Systems ROS Statement: Those systems with pertinent positive or pertinent negative responses have been documented in the HPI. ROS Other: All systems not noted in ROS Statement are negative. Past Medical History Past Medical History: No Reported History History of Any Multi-Drug Resistant Organisms: None Reported Additional Past Surgical History / Comment(s): lymph node removed from behind left ear, Past Anesthesia/Blood Transfusion Reactions: No Reported Reaction Past Psychological History: No Psychological Hx Reported Smoking Status: Current every day smoker Past Alcohol Use History: Occasional Past Drug Use History: Marijuana - Past Family History Father Family Medical History: Diabetes Mellitus Additional Family Medical History / Comment(s): Father recently had a cholecystectomy. Mother Family Medical History: No Reported History Additional Family Medical History / Comment(s): Mother is healthy. General Exam - General Exam Comments Initial Comments: GENERAL: Patient is well-developed and well-nourished. Patient is nontoxic and well- hydrated and is in mild distress. ENT: Neck is soft and supple. No significant lymphadenopathy is noted. Oropharynx is clear. Moist mucous membranes. Neck has full range of motion without eliciting any pain. EYES: The sclera were anicteric and conjunctiva were pink and moist. Extraocular movements were intact and pupils were equal round and reactive to light. Eyelids were unremarkable. PULMONARY: Unlabored respirations. Good breath sounds bilaterally. No audible rales rhon chi or wheezing was noted. CARDIOVASCULAR: There is a regular rate and rhythm without any murmurs gallops or rubs. ABDOMEN: Soft and nontender with normal bowel sounds. No palpable organomegaly was noted. There is no palpable pulsatile mass. SKIN Skin is clear with no lesions or rashes and otherwise unremarkable. NEUROLOGIC: Patient is alert and oriented x3. Cranial nerves II through XII are grossly intact. Motor and sensory are also intact. Normal speech, volume and content. Symmetrical smile. MUSCULOSKELETAL: Normal extremities with adequate strength and full range of motion. LYMPHATICS: No significant lymphadenopathy is noted PSYCHIATRIC: Normal psychiatric evaluation. Limitations: no limitations Course Vital Signs 08/06/19 08/06/19 08:39 08:58 Temperature 98 F Pulse Rate 81 Respiratory 18 20 Rate Blood Pressure 128/84 O2 Sat by Pulse 98 Oximetry Medical Decision Making - Medical Decision Making Chest x-ray shows no acute abnormality. Patient was given Tamiflu in the emergency department. - Lab Data Result diagrams: 08/06/19 09:12 08/06/19 09:12 Lab Results 08/06/19 08/06/19 08/06/19 Range/Units 09:12 09:12 09:12 WBC 1.7 L (3.8-10.6) k/uL RBC 5.15 (4.30-5.90) m/uL Hgb 14.6 (13.0-17.5) gm/dL Hct 43.4 (39.0-53.0) % MCV 84.2 (80.0-100.0) fL MCH 28.4 (25.0-35.0) pg MCHC 33.8 (31.0-37.0) g/dL RDW 12.8 (11.5-15.5) % Plt Count 184 (150-450) k/uL Neutrophils % 50 % Lymphocytes % 33 % Monocytes % 10 % Eosinophils % 3 % Basophils % 1 % Neutrophils # 0.8 L (1.3-7.7) k/uL Lymphocytes # 0.6 L (1.0-4.8) k/uL Monocytes # 0.2 (0-1.0) k/uL Eosinophils # 0.1 (0-0.7) k/uL Basophils # 0.0 (0-0.2) k/uL Sodium 140 (137-145) mmol/L Potassium 4.4 (3.5-5.1) mmol/L Chloride 101 (98-107) mmol/L Carbon Dioxide 29 (22-30) mmol/L Anion Gap 10 mmol/L BUN 11 (9-20) mg/dL Creatinine 0.72 (0.66-1.25) mg/dL Est GFR (CKD-EPI)AfAm >90 (>60 ml/min/1.73 sqM) Est GFR (CKD-EPI)NonAf >90 (>60 ml/min/1.73 sqM) Glucose 98 (74-99) mg/dL Calcium 9.2 (8.4-10.2) mg/dL Total Bilirubin 0.6 (0.2-1.3) mg/dL AST 43 (17-59) U/L ALT 60 H (4-49) U/L Alkaline Phosphatase 94 (38-126) U/L Total Protein 7.7 (6.3-8.2) g/dL Albumin 4.7 (3.5-5.0) g/dL Influenza Type A RNA Detected H (Not Detectd) Influenza Type B (PCR) Not Detected (Not Detectd) Disposition Clinical Impression: Influenza Disposition: HOME SELF-CARE Condition: Good Instructions (If sedation given, give patient instructions): Influenza (ED) Prescriptions: Oseltamivir [Tamiflu] 75 mg PO Q12HR #10 cap Is patient prescribed a controlled substance at d/c from ED?: No Referrals: Michelle Robin MD [Primary Care Provider] - 1-2 days Time of Disposition: 10:03
[2019-08-06 09:23] LABS: Basophils % (A) 1 %; Eosinophils # (A) 0.1 k/uL (0-0.7); Eosinophils % (A) 3 %; HCT 43.4 % (39.0-53.0); HGB 14.6 gm/dL (13.0-17.5); Lymphocytes # (A) 0.6 k/uL (1.0-4.8); Lymphocytes % (A) 33 %; MCH 28.4 pg (25.0-35.0); MCHC 33.8 g/dL (31.0-37.0); MCV 84.2 fL (80.0-100.0); Mean Platelet Volume 8.1; Monocytes # (A) 0.2 k/uL (0-1.0); Monocytes % (A) 10 %; Neutrophils # (A) 0.8 k/uL (1.3-7.7); Neutrophils % (A) 50 %; Platelet Count 184 k/uL (150-450); RBC 5.15 m/uL (4.30-5.90); RDW 12.8 % (11.5-15.5); WBC 1.7 k/uL (3.8-10.6)
--- NOTE | 2019-08-06 09:25 | XR ---
EXAMINATION TYPE: XR chest 2V DATE OF EXAM: 08/06/2019 COMPARISON: 12/31/2015 HISTORY: Cough, fever, nausea, and vomiting TECHNIQUE: Frontal and lateral views of the chest are obtained. FINDINGS: There is no focal air space opacity, pleural effusion, or pneumothorax seen. The cardiac silhouette size is within normal limits. The osseous structures are intact. IMPRESSION: No acute cardiopulmonary process.
[2019-08-06 09:43] LABS: ALT 60 U/L (4-49); AST 43 U/L (17-59); African American GFR (CKD) >90 (>60 ml/min/1.73 sqM); Albumin 4.7 g/dL (3.5-5.0); Alkaline Phosphatase 94 U/L (38-126); Anion Gap 10 mmol/L; Blood Urea Nitrogen 11 mg/dL (9-20); Calcium 9.2 mg/dL (8.4-10.2); Carbon Dioxide 29 mmol/L (22-30); Chloride 101 mmol/L (98-107); Glucose 98 mg/dL (74-99); Non-African American GFR(CKD) >90 (>60 ml/min/1.73 sqM); Potassium 4.4 mmol/L (3.5-5.1); Sodium 140 mmol/L (137-145); Total Bilirubin 0.6 mg/dL (0.2-1.3); Total Protein 7.7 g/dL (6.3-8.2)
[2019-08-06] MEDS ORDERED: OSELTAMIVIR 75 MG CAP PO STA (10:02)
[2019-08-06 10:08] VITALS: BP 122/78; PULSE 80; RESP 18
== END 2019-08-06 10:07 | disposition home or self-care (01) ==
LOC: EC 08:34
DX: J10.1 Influenza due to other identified influenza virus with other respiratory manifestations (principal); R11.2 Nausea with vomiting, unspecified; R19.7 Diarrhea, unspecified; F17.200 Nicotine dependence, unspecified, uncomplicated
CPT/HCPCS: 36415; 80053; 85025; 87502; 71046; 99284; 96374; 96361; J2405

== ENCOUNTER 2020-08-27 09:02 | Emergency (ER) | payer OTHER ==
[2020-08-27 09:16] VITALS: BP 120/77; PULSE 103; RESP 18; TEMP 99.3
--- NOTE | 2020-08-27 10:03 | ED ---
URI HPI - General Chief Complaint: Upper Respiratory Infection Stated Complaint: Covid Symptoms Time Seen by Provider: 08/27/20 09:20 Source: patient, RN notes reviewed Mode of arrival: ambulatory Limitations: no limitations - History of Present Illness Initial Comments: This a 30-year-old male presents emergency Department with chief complaint of cough congestion shortness of breath loss of taste a small. Patient is concerned that he may have covid 19. Patient states that he became symptomatic last night. He states he had to tell states he has mild soreness but no significant complaint. Patient denies any chest pain no leg swelling no nausea vomiting or constipation. - Related Data Home Medications Medication Instructions Recorded Confirmed Acetaminophen [Tylenol] 325 mg PO Q6H PRN 06/17/18 04/10/19 Previous Rx's Medication Instructions Recorded Oseltamivir [Tamiflu] 75 mg PO Q12HR #10 cap 08/06/19 Allergies Allergy/AdvReac Type Severity Reaction Status Date / Time No Known Allergies Allergy Verified 08/27/20 09:16 Review of Systems ROS Statement: Those systems with pertinent positive or pertinent negative responses have been documented in the HPI. ROS Other: All systems not noted in ROS Statement are negative. Past Medical History Past Medical History: No Reported History History of Any Multi-Drug Resistant Organisms: None Reported Additional Past Surgical History / Comment(s): lymph node removed from behind left ear, Past Anesthesia/Blood Transfusion Reactions: No Reported Reaction Past Psychological History: No Psychological Hx Reported Smoking Status: Never smoker Past Alcohol Use History: Occasional Past Drug Use History: Marijuana - Past Family History Father Family Medical History: Diabetes Mellitus Additional Family Medical History / Comment(s): Father recently had a cholecystectomy. Mother Family Medical History: No Reported History Additional Family Medical History / Comment(s): Mother is healthy. General Exam Limitations: no limitations General appearance: alert, in no apparent distress Head exam: Present: atraumatic, normocephalic, normal inspection Eye exam: Present: normal appearance, PERRL, EOMI. Absent: scleral icterus, conjunctival injection, periorbital swelling ENT exam: Present: normal exam, normal oropharynx, mucous membranes moist Neck exam: Present: normal inspection, full ROM. Absent: tenderness, meningismus, lymphadenopathy Respiratory exam: Present: normal lung sounds bilaterally. Absent: respiratory distress, wheezes, rales, rhonchi, stridor Cardiovascular Exam: Present: regular rate, normal rhythm, normal heart sounds. Absent: systolic murmur, diastolic murmur, rubs, gallop, clicks GI/Abdominal exam: Present: soft, normal bowel sounds. Absent: distended, tenderness, guarding, rebound, rigid Course Vital Signs 08/27/20 09:11 Temperature 99.3 F Pulse Rate 103 H Respiratory 18 Rate Blood Pressure 120/77 O2 Sat by Pulse 97 Oximetry Medical Decision Making - Medical Decision Making X-ray and Covid testing were negative. Patient is still symptomatic. Patient advised to quarantine. He may retest if worsening. Return parameters were discussed. - Lab Data Lab Results 08/27/20 Range/Units 09:39 Coronavirus (PCR) Not Detected (Not Detectd) Disposition Clinical Impression: Acute upper respiratory infection Disposition: HOME SELF-CARE Condition: Stable Instructions (If sedation given, give patient instructions): Upper Respiratory Infection (ED) Additional Instructions: Please return to the Emergency Department if symptoms worsen or any other concerns. Is patient prescribed a controlled substance at d/c from ED?: No Referrals: Michelle Robin MD [Primary Care Provider] - 1-2 days Time of Disposition: 10:13
--- NOTE | 2020-08-27 10:08 | XR ---
EXAMINATION TYPE: XR chest 2V DATE OF EXAM: 08/27/2020 COMPARISON: 08/06/2019 INDICATION: Cough, fever TECHNIQUE: Frontal and lateral views of the chest are obtained. FINDINGS: The heart size is normal. The pulmonary vasculature is normal. The lungs are clear. IMPRESSION: 1. No acute pulmonary process.
== END 2020-08-27 10:21 | disposition home or self-care (01) ==
LOC: EC 09:02
DX: J06.9 Acute upper respiratory infection, unspecified (principal); Z20.822 Contact with and (suspected) exposure to COVID-19
CPT/HCPCS: 71046; 87635; 99285

== ENCOUNTER 2021-03-03 12:49 | Emergency (ER) | payer OTHER ==
[2021-03-03 13:33] VITALS: BP 133/77; PULSE 103; RESP 20; TEMP 98.2
--- NOTE | 2021-03-03 15:25 | ED ---
URI HPI - General Chief Complaint: Upper Respiratory Infection Stated Complaint: Covid symptoms Time Seen by Provider: 03/03/21 14:00 Source: patient, RN notes reviewed Mode of arrival: ambulatory Limitations: no limitations - History of Present Illness Initial Comments: 30-year-old male presents emergency from chief complaint of cough congestion. Symptoms started 2 days ago. Patient became concerned as his son was exposed to COVID-19 at school. Patient denies any reported fever he states he has a productive cough, mild discomfort in the right side of his chest. Patient states he is normally healthy. Patient denies any GI symptoms no hematuria. Sore throat or current headache. - Related Data Home Medications Medication Instructions Recorded Confirmed Acetaminophen [Tylenol] 325 mg PO Q6H PRN 06/17/18 04/10/19 Previous Rx's Medication Instructions Recorded Oseltamivir [Tamiflu] 75 mg PO Q12HR #10 cap 08/06/19 Azithromycin [Zithromax Z-pack (6 0 mg PO DIRECTED #1 packet 03/03/21 tabs)] Allergies Allergy/AdvReac Type Severity Reaction Status Date / Time No Known Allergies Allergy Verified 03/03/21 13:33 Review of Systems ROS Statement: Those systems with pertinent positive or pertinent negative responses have been documented in the HPI. ROS Other: All systems not noted in ROS Statement are negative. Past Medical History Past Medical History: No Reported History History of Any Multi-Drug Resistant Organisms: None Reported Additional Past Surgical History / Comment(s): lymph node removed from behind left ear, Past Anesthesia/Blood Transfusion Reactions: No Reported Reaction Past Psychological History: No Psychological Hx Reported Smoking Status: Never smoker Past Alcohol Use History: Occasional Past Drug Use History: Marijuana - Past Family History Father Family Medical History: Diabetes Mellitus Additional Family Medical History / Comment(s): Father recently had a cholecystectomy. Mother Family Medical History: No Reported History Additional Family Medical History / Comment(s): Mother is healthy. General Exam Limitations: no limitations General appearance: alert, in no apparent distress Head exam: Present: atraumatic, normocephalic, normal inspection Eye exam: Present: normal appearance, PERRL, EOMI. Absent: scleral icterus, conjunctival injection, periorbital swelling ENT exam: Present: normal exam, normal oropharynx, mucous membranes moist Neck exam: Present: normal inspection, full ROM. Absent: tenderness, meningismus, lymphadenopathy Respiratory exam: Present: rhonchi (Left). Absent: normal lung sounds bilaterally, respiratory distress, wheezes, rales, stridor Cardiovascular Exam: Present: regular rate, normal rhythm, normal heart sounds. Absent: systolic murmur, diastolic murmur, rubs, gallop, clicks Course Vital Signs 03/03/21 13:30 Temperature 98.2 F Pulse Rate 103 H Respiratory 20 Rate Blood Pressure 133/77 O2 Sat by Pulse 99 Oximetry Medical Decision Making - Medical Decision Making COVID-19 is negative. Patient discharged in stable condition. - Lab Data Lab Results 03/03/21 Range/Units 13:36 Coronavirus (PCR) Not Detected (Not Detectd) Disposition Clinical Impression: Acute upper respiratory infection Disposition: HOME SELF-CARE Condition: Stable Instructions (If sedation given, give patient instructions): Upper Respiratory Infection (ED) Additional Instructions: Please return to the Emergency Department if symptoms worsen or any other concerns. Prescriptions: Azithromycin [Zithromax Z-pack (6 tabs)] 0 mg PO DIRECTED #1 packet Is patient prescribed a controlled substance at d/c from ED?: No Referrals: None,Stated [REFERRING] - 1-2 days Time of Disposition: 15:25
== END 2021-03-03 15:36 | disposition home or self-care (01) ==
LOC: EC 12:49
DX: J06.9 Acute upper respiratory infection, unspecified (principal); Z20.822 Contact with and (suspected) exposure to COVID-19
CPT/HCPCS: 87635; 99284

== ENCOUNTER 2021-04-09 06:32 | Emergency (ER) | payer OTHER ==
[2021-04-09 06:43] VITALS: BP 134/84; PULSE 90; RESP 18; TEMP 98
[2021-04-09] MEDS ORDERED: KETOROLAC 15 MG/ML 1 ML VIAL IM STA (06:47)
--- NOTE | 2021-04-09 07:05 | XR ---
EXAMINATION TYPE: XR ankle complete RT, XR foot complete RT DATE OF EXAM: 04/09/2021 CLINICAL HISTORY: Twisting injury with pain TECHNIQUE: Frontal, lateral and oblique images of the right ankle and foot are obtained. COMPARISON: Right ankle and foot xrays April 10, 2019. FINDINGS: There is no acute fracture/dislocation evident in the right ankle. The ankle mortise appe ars within normal limits. The overlying soft tissue appears unremarkable. There is no acute fracture or dislocation evident in the right foot. The joint spaces in the right f oot are preserved. Unfused apophysis near lateral aspect of the cuboid bone is redemonstrated. [place] ing soft tissue is unremarkable. IMPRESSION: There is no acute fracture or dislocation in the right ankle or foot. No significant nathaly nge from prior study.
--- NOTE | 2021-04-09 07:08 | ED ---
Lower Extremity Injury HPI - General Chief Complaint: Extremity Injury, Lower Stated Complaint: Right ankle injury Time Seen by Provider: 04/09/21 06:47 Source: patient, RN notes reviewed Mode of arrival: wheelchair Limitations: no limitations - History of Present Illness Initial Comments: Patient is a 30-year-old male that presents to the emergency department complaining of right ankle pain. He notes he was walking into work today when he rolled it. He notes his boss told to come the ER to get an x-ray make sure it wasn't broken. Patient notes that he is able to walk on it with no difficulty but minimal pain. He was otherwise well-appearing in no apparent distress. She denied chest pain shortness of breath headache nausea vomiting diarrhea constipation fever fatigue chills. He denied weakness numbness tingling in his right foot. - Related Data Home Medications Medication Instructions Recorded Confirmed Acetaminophen [Tylenol] 325 mg PO Q6H PRN 06/17/18 04/10/19 Previous Rx's Medication Instructions Recorded Oseltamivir [Tamiflu] 75 mg PO Q12HR #10 cap 08/06/19 Azithromycin [Zithromax Z-pack (6 0 mg PO DIRECTED #1 packet 03/03/21 tabs)] Allergies Allergy/AdvReac Type Severity Reaction Status Date / Time No Known Allergies Allergy Verified 04/09/21 06:42 Review of Systems ROS Statement: Those systems with pertinent positive or pertinent negative responses have been documented in the HPI. ROS Other: All systems not noted in ROS Statement are negative. Past Medical History Past Medical History: No Reported History History of Any Multi-Drug Resistant Organisms: None Reported Additional Past Surgical History / Comment(s): lymph node removed from behind left ear, Past Anesthesia/Blood Transfusion Reactions: No Reported Reaction Past Psychological History: No Psychological Hx Reported Smoking Status: Never smoker Past Alcohol Use History: Occasional Past Drug Use History: Marijuana - Past Family History Father Family Medical History: Diabetes Mellitus Additional Family Medical History / Comment(s): Father recently had a cholecystectomy. Mother Family Medical History: No Reported History Additional Family Medical History / Comment(s): Mother is healthy. General Exam Limitations: no limitations General appearance: alert, in no apparent distress Head exam: Present: atraumatic, normocephalic, normal inspection Eye exam: Present: normal appearance, PERRL, EOMI. Absent: scleral icterus, conjunctival injection, periorbital swelling Neck exam: Present: normal inspection Respiratory exam: Present: normal lung sounds bilaterally. Absent: respiratory distress, wheezes, rales, rhonchi, stridor Cardiovascular Exam: Present: regular rate, normal rhythm, normal heart sounds. Absent: systolic murmur, diastolic murmur, rubs, gallop, clicks Extremities exam: Present: normal inspection, full ROM, normal capillary refill. Absent: tenderness, pedal edema, joint swelling, calf tenderness Right Ankle exam: Present: normal inspection, full ROM, tenderness (Lateral aspect inferior the malleoli). Absent: swelling, abrasion, laceration, ecchymosis, deformity, crepitus Neurological exam: Present: alert, oriented X3 Psychiatric exam: Present: normal affect, normal mood Skin exam: Present: warm, dry, intact, normal color. Absent: rash Course Vital Signs 04/09/21 06:40 Temperature 98 F Pulse Rate 90 Respiratory 18 Rate Blood Pressure 134/84 O2 Sat by Pulse 98 Oximetry Medical Decision Making - Medical Decision Making 30-year-old male with right ankle injury. X-ray right ankle/foot ordered. Patient declined payment this time as it is tolerable. X-rays negative for any acute fractures dislocations. Patient most likely of right ankle sprain. Case discussed with Dr. cuellar, patient discharge home. Disposition Clinical Impression: Right ankle sprain Disposition: HOME SELF-CARE Condition: Stable Instructions (If sedation given, give patient instructions): Ankle Sprain (ED) Additional Instructions: Please return to the Emergency Department if symptoms worsen or any other concerns. Follow-up with primary care 1-2 days. Take Tylenol Motrin as needed for pain. Use as tolerated. Rest compress ice elevate. Is patient prescribed a controlled substance at d/c from ED?: No Referrals: Esperanza Harris [Primary Care Provider] - 1-2 days Time of Disposition: 07:08
== END 2021-04-09 07:16 | disposition home or self-care (01) ==
LOC: EC 06:32
DX: S93.401A Sprain of unspecified ligament of right ankle, initial encounter (principal); W10.1XXA Fall (on)(from) sidewalk curb, initial encounter
CPT/HCPCS: 96372; 99283